=== PATIENT | female | born 1950 | race Caucasian/White ===

== ENCOUNTER 2018-01-02 18:46 | Emergency (ER) | payer OTHER | END 2018-01-03 01:48 | disposition home or self-care (01) | LOC: FTE 01-03 01:48 | DX: M25.571 Pain in right ankle and joints of right foot (principal); H66.91 Otitis media, unspecified, right ear; I10 Essential (primary) hypertension; Z79.82 Long term (current) use of aspirin; Z87.891 Personal history of nicotine dependence; Z96.653 Presence of artificial knee joint, bilateral | CPT/HCPCS: 73610; 73610-RT; 99283-25 ==